=== PATIENT | female | born 1960 | race African-American/Black ===

== ENCOUNTER 2017-12-07 13:25 | Inpatient (IN) | payer OTHER ==
[~2017-12-07] VITALS: Ht 165.1 cm; Wt 107.5 kg
[2017-12-07] MEDS ORDERED: ONDANSETRON HCL 4MG/2ML VIAL IV STA (13:32)
[2017-12-07 14:05] LABS: BASOPHILS % 0.8 % (0.0-2.0); EOSINOPHILS % 0.4 % (0.0-5.0); HEMATOCRIT. 42.4 % (36.0-48.0); HEMOGLOBIN. 14.1 g/dL (12.0-16.0); LYMPHOCYTES % 25.6 % (20.0-50.0); MEAN CORPUSCULAR HEMOGLOBIN 28.8 pg (28.0-32.0); MEAN CORPUSCULAR VOLUME 86.8 fL (81.0-99.0); MEAN PLATELET VOLUME 8.1 fl (7.4-10.4); MONOCYTES % 10.3 % (2.0-8.0); NEUTROPHILS % 62.9 % (40.0-76.0); PLATELET 341 x1000/uL (130-400); RED BLOOD CELL COUNT 4.89 mill/uL (4.2-5.4); RED CELL DISTRIBUTION WIDTH 14.3 % (11.6-14.6)
[2017-12-07 14:15] LABS: INR 1.1; PARTIAL THROMBOPLASTIN TIME 34.2 sec (23.4-31.0); PROTHROMBIN TIME 11.7 sec (9.4-11.6)
[2017-12-07] MEDS ORDERED: SODIUM CHLORIDE 0.9% 1,000 ML IV ONE (14:22)
[2017-12-07] MEDS ORDERED: ACETAMINOPHEN 325MG TABLET PO STA (14:22)
[2017-12-07 14:23] LABS: CHLORIDE 100 mEq/L (98-107); TROPONIN I < 0.02 ng/mL (0.00-0.04)
[2017-12-07] MEDS ORDERED: LEVOFLOXACIN 750MG PREMIX 150 ML IV ONE (14:30)
[2017-12-07] MEDS ORDERED: METHYLPREDNISOLONE SOD SUCC 125 MG/2 ML VIAL IV ONE (14:30)
[2017-12-07] MEDS ORDERED: IPRATROPIUM/ALBUTEROL 0.5-3(2.5)MG/3ML NEB HHN ONE (14:30)
[2017-12-07] MEDS ORDERED: KETOROLAC 30MG/ML VIAL IM ONE (16:00)
[2017-12-07] MEDS ORDERED: OSELTAMIVIR 75MG CAPSULE PO ONE (16:00)
[2017-12-07] MEDS ORDERED: ONDANSETRON HCL 4MG/2ML VIAL IV PRN (16:15)
[2017-12-07] MEDS: ACETAMINOPHEN 650MG/20.3ML UDC GT PRN ×2 (16:17→16:19)
[2017-12-07] MEDS ORDERED: HYDROMORPHONE HCL/PF 2MG/ML CPJ IV PRN (19:45)
[2017-12-07] MEDS: HYDROMORPHONE HCL/PF 2MG/ML CPJ IV PRN (20:03)
[2017-12-07 22:30] VITALS: BP 157/81
[2017-12-07 22:45] VITALS: BP 157/81
[2017-12-07] MEDS: LORAZEPAM 2MG/ML CPJ IV PRN (23:52)
[2017-12-07] MEDS: SODIUM CHLORIDE 0.9% 1,000 ML IV SCH (23:55)
[2017-12-08] VITALS (8 sets, daily range): BP systolic 131–184; BP diastolic 60–99
[2017-12-08] MEDS ORDERED: POTASSIUM CHLORIDE INJ 40 MEQ in DEXT 5% WATER 500 ML IV NR ×2
[2017-12-08] MEDS: HYDROMORPHONE HCL/PF 2MG/ML CPJ IV PRN ×3 (01:46→15:09)
[2017-12-08] MEDS: IPRATROPIUM/ALBUTEROL 0.5-3(2.5)MG/3ML NEB HHN SCH ×5 (04:57→20:52)
[2017-12-08] MEDS: ENOXAPARIN 40MG/0.4ML SYR SUBCUT SCH ×2 (08:14→21:05)
[2017-12-08] MEDS: SODIUM CHLORIDE 0.9% 1,000 ML IV SCH ×2 (08:14→18:07)
[2017-12-08 08:54] LABS: BASOPHILS % 0.7 % (0.0-2.0); HEMOGLOBIN. 13.9 g/dL (12.0-16.0); LYMPHOCYTES % 29.3 % (20.0-50.0); MEAN CORPUSCULAR HEMOGLOBIN 28.8 pg (28.0-32.0); MEAN CORPUSCULAR VOLUME 87.2 fL (81.0-99.0); MEAN PLATELET VOLUME 8.3 fl (7.4-10.4); MONOCYTES % 10.9 % (2.0-8.0); NEUTROPHILS % 59.1 % (40.0-76.0); PLATELET 323 x1000/uL (130-400); RED BLOOD CELL COUNT 4.82 mill/uL (4.2-5.4); RED CELL DISTRIBUTION WIDTH 14.4 % (11.6-14.6)
[2017-12-08 09:12] LABS: CLARITY URINE CLOUDY (CLEAR); COLOR URINE YELLOW (YELLOW); KETONES URINE NEGATIVE (NEGATIVE); LEUKOCYTE ESTERASE URINE TRACE (NEGATIVE); NITRITE URINE NEGATIVE (NEGATIVE); OCCULT BLOOD URINE 3+ (NEGATIVE); PH URINE 6.5 (4.5-8.0); PROTEIN URINE 2+ (NEGATIVE)
[2017-12-08 09:34] LABS: CHLORIDE 103 mEq/L (98-107)
[2017-12-08 10:00] LABS: *AMPHETAMINES SCREEN URINE NEGATIVE (NEGATIVE); *BARBITURATES SCREEN URINE NEGATIVE (NEGATIVE); *BENZODIAZEPINES SCREEN URINE NEGATIVE (NEGATIVE); *COCAINE SCREEN URINE NEGATIVE (NEGATIVE); CANNABINOID URINE SCREEN PRESUMTIVE POSITIVE (NEGATIVE); METHADONE URINE SCREEN NEGATIVE (NEGATIVE); OPIATES URINE SCREEN PRESUMTIVE POSITIVE (NEGATIVE); PHENCYCLIDINE URINE SCREEN NEGATIVE (NEGATIVE)
[2017-12-08] MEDS: LORAZEPAM 2MG/ML CPJ IV PRN ×2 (11:07→19:05)
[2017-12-08] MEDS: METHYLPREDNISOLONE SOD SUCC 125 MG/2 ML VIAL IV SCH ×2 (12:04→21:05)
[2017-12-08] MEDS ORDERED: LEVOFLOXACIN 500MG PREMIX 100 ML IV SCH (15:00)
[2017-12-08] MEDS: CLONIDINE 0.1MG TABLET PO PRN (15:08)
[2017-12-08] MEDS: BUDESONIDE 0.5MG/2ML NEB HHN SCH (15:52)
[2017-12-08] MEDS: MONTELUKAST SODIUM 10MG TABLET PO SCH (16:14)
[2017-12-08 17:11] LABS: CLARITY URINE CLEAR (CLEAR); COLOR URINE YELLOW (YELLOW); KETONES URINE NEGATIVE (NEGATIVE); LEUKOCYTE ESTERASE URINE NEGATIVE (NEGATIVE); NITRITE URINE NEGATIVE (NEGATIVE); OCCULT BLOOD URINE 3+ (NEGATIVE); PH URINE 5.5 (4.5-8.0); PROTEIN URINE TRACE (NEGATIVE); SPECIFIC GRAVITY URINE 1.027 (1.005-1.030)
[2017-12-08] MEDS: ACETAMINOPHEN 650MG/20.3ML UDC GT PRN (21:04)
[2017-12-08] MEDS: GUAIFENESIN 600MG ER TABLET PO SCH (21:05)
[2017-12-08] MEDS: FAMOTIDINE 20MG TABLET PO SCH (21:06)
[2017-12-09] VITALS: BP 161/94
[2017-12-09 04:00] VITALS: BP 160/87
[2017-12-09] MEDS: SODIUM CHLORIDE 0.9% 1,000 ML IV SCH (04:32)
[2017-12-09] MEDS: METHYLPREDNISOLONE SOD SUCC 125 MG/2 ML VIAL IV SCH (04:32)
[2017-12-09] MEDS: LORAZEPAM 2MG/ML CPJ IV PRN ×2 (04:37)
[2017-12-09] MEDS: IPRATROPIUM/ALBUTEROL 0.5-3(2.5)MG/3ML NEB HHN SCH ×4 (04:44→15:36)
[2017-12-09] MEDS: BUDESONIDE 0.5MG/2ML NEB HHN SCH ×2 (04:45→07:23)
[2017-12-09] MEDS: ACETAMINOPHEN 650MG/20.3ML UDC GT PRN (04:48)
[2017-12-09 05:51] LABS: BASOPHILS % 0.1 % (0.0-2.0); HEMATOCRIT. 42.7 % (36.0-48.0); HEMOGLOBIN. 14.3 g/dL (12.0-16.0); LYMPHOCYTES % 19.2 % (20.0-50.0); MEAN CORPUSCULAR HEMOGLOBIN 29.2 pg (28.0-32.0); MEAN PLATELET VOLUME 8.6 fl (7.4-10.4); MONOCYTES % 4.6 % (2.0-8.0); NEUTROPHILS % 76.1 % (40.0-76.0); PLATELET 372 x1000/uL (130-400); RED CELL DISTRIBUTION WIDTH 14.5 % (11.6-14.6)
[2017-12-09 06:30] LABS: CHLORIDE 102 mEq/L (98-107)
[2017-12-09 08:00] VITALS: BP 150/92
[2017-12-09] MEDS: CLONIDINE 0.1MG TABLET PO PRN ×2 (09:23→19:08)
[2017-12-09] MEDS: FAMOTIDINE 20MG TABLET PO SCH (09:23)
[2017-12-09] MEDS: ENOXAPARIN 40MG/0.4ML SYR SUBCUT SCH (09:23)
[2017-12-09] MEDS: GUAIFENESIN 600MG ER TABLET PO SCH (09:23)
[2017-12-09] MEDS: HYDROMORPHONE HCL/PF 2MG/ML CPJ IV PRN ×2 (09:25→13:40)
[2017-12-09] MEDS ORDERED: LEVOFLOXACIN 500MG PREMIX 100 ML IV SCH (11:00)
[2017-12-09] MEDS ORDERED: LOSARTAN POTASSIUM 50 MG TABLET PO SCH (11:15)
[2017-12-09 12:00] VITALS: BP 164/88
[2017-12-09] MEDS ORDERED: METHYLPREDNISOLONE SOD SUCC 40 MG/ML VIAL IV SCH (14:00)
[2017-12-09 16:00] VITALS: BP 150/94
[2017-12-09] MEDS: MONTELUKAST SODIUM 10MG TABLET PO SCH (16:49)
[2017-12-09 18:58] VITALS: BP 150/94
[2017-12-09] MEDS ORDERED: BUDESONIDE 0.5MG/2ML NEB HHN SCH (20:00)
== END 2017-12-09 19:19 | disposition short-term general hospital (02) | DRG 189 ==
LOC: ER 14:07 → EDBEDREQ 14:29 → 5WST 16:00 → EDBEDREQ 16:02 → EDBEDREQSVC 16:02 → ENRESERV 20:14
PROVIDERS: ADMIT Internal Medicine Nephrology; ATTEND Internal Medicine Nephrology
DX: J96.00 Acute respiratory failure, unspecified whether with hypoxia or hypercapnia (principal); J45.901 Unspecified asthma with (acute) exacerbation; E86.0 Dehydration; N39.0 Urinary tract infection, site not specified; J06.9 Acute upper respiratory infection, unspecified; K21.9 Gastro-esophageal reflux disease without esophagitis; I10 Essential (primary) hypertension; E87.6 Hypokalemia; Z60.2 Problems related to living alone; F41.9 Anxiety disorder, unspecified; F11.90 Opioid use, unspecified, uncomplicated; F12.90 Cannabis use, unspecified, uncomplicated; E66.9 Obesity, unspecified; Z83.3 Family history of diabetes mellitus; Z83.2 Family history of diseases of the blood and blood-forming organs and certain disorders involving the immune mechanism
CPT/HCPCS: 36415; 71045; 80048; 80053; 80305; 81001; 83605; 83690; 83880; 84484; 85025; 85610; 85730; 87040; 87070; 87086; 87804; 93005; 94640; 96365; 96366; 96372; 96375; 99285; J1170; J1650; J1885; J1956; J2060; J2405; J2920; J2930; J3480; J7030; J7060; J7620; J7626

== ENCOUNTER 2025-08-25 09:45 | Inpatient (IN) | payer BC, MEDICAID ==
[~2025-08-25] VITALS: Ht 165.1 cm; Wt 98.4 kg
[2025-08-25] MEDS: FAMOTIDINE 20MG/2ML VIAL IV ONE (10:23)
[2025-08-25] MEDS: KETOROLAC 15MG/ML VIAL IV ONE (10:23)
[2025-08-25] MEDS: SODIUM CHLORIDE 0.9% 1,000 ML IV ONE (10:24)
[2025-08-25] MEDS: ONDANSETRON HCL 4MG/2ML INJ IV ONE (10:24)
[2025-08-25 10:35] LABS: BASOPHILS % 1.6 % (0.0-2.0); EOSINOPHILS % 0.6 % (0.0-5.0); HEMATOCRIT. 40.6 % (36.0-48.0); HEMOGLOBIN. 13.3 g/dL (12.0-16.0); LYMPHOCYTES % 25.8 % (20.0-50.0); MEAN PLATELET VOLUME 8.2 fl (7.4-10.4); MONOCYTES % 5.0 % (2.0-8.0); NEUTROPHILS % 67.0 % (40.0-76.0); PLATELET 358 x1000/uL (130-400); RED BLOOD CELL COUNT 4.55 mill/uL (4.2-5.4); RED CELL DISTRIBUTION WIDTH 15.0 % (11.6-14.6)
[2025-08-25 10:54] LABS: CREATININE 0.9 mg/dL (0.6-1.0); UREA NITROGEN BLOOD 10 mg/dL (9-23)
[2025-08-25 10:55] LABS: ETHANOL BLOOD < 10 mg/dL (<10)
[2025-08-25 10:56] LABS: ASPARTATE AMINOTRANSFERASE 26 IU/L (<34); BILIRUBIN DIRECT 0.2 mg/dL (<=3.0)
[2025-08-25 10:57] LABS: BILIRUBIN TOTAL 0.8 mg/dL (0.1-1.0); PROTEIN TOTAL 7.7 g/dL (6.0-8.3)
[2025-08-25] MEDS: HALOPERIDOL LACTATE 5MG/ML VIAL IM ONE (11:06)
[2025-08-25 11:15] LABS: TROPONIN I HIGH SENSITIVITY 1885 ng/L (3.0-34)
[2025-08-25] MEDS: MORPHINE SULFATE 4 MG/ML INJ (FOR IV/IM USE) IV ONE (11:57)
[2025-08-25] MEDS: LABETALOL 5MG/ML 4ML INJ IV ONE (11:57)
[2025-08-25 12:29] LABS: CLARITY URINE CLEAR (CLEAR); COLOR URINE YELLOW (YELLOW); GLUCOSE URINE NEGATIVE (NEGATIVE); KETONES URINE TRACE (NEGATIVE); LEUKOCYTE ESTERASE URINE NEGATIVE (NEGATIVE); NITRITE URINE NEGATIVE (NEGATIVE); OCCULT BLOOD URINE 2+ (NEGATIVE); PH URINE 6.5 (4.5-8.0); PROTEIN URINE NEGATIVE (NEGATIVE); SPECIFIC GRAVITY URINE 1.014 (1.005-1.030); UROBILINOGEN URINE 0.2 E.U./dL (0.2-1.0)
[2025-08-25] MEDS ORDERED: HEPARIN 5000 UNITS/ML VIAL IV SCH (12:45)
[2025-08-25] MEDS ORDERED: HEPARIN 5000 UNITS/ML VIAL IV PRN ×5 (12:45→19:00)
[2025-08-25 13:25] LABS: *AMPHETAMINES SCREEN URINE NEGATIVE (NEGATIVE); *BARBITURATES SCREEN URINE NEGATIVE (NEGATIVE); *BENZODIAZEPINES SCREEN URINE NEGATIVE (NEGATIVE)
[2025-08-25 13:26] LABS: *COCAINE SCREEN URINE NEGATIVE (NEGATIVE); CANNABINOID URINE SCREEN PRESUMPTIVE POSITIVE (NEGATIVE); ECSTASY MDMA SCREEN URINE NEGATIVE (NEGATIVE); METHADONE URINE SCREEN NEGATIVE (NEGATIVE); OPIATES URINE SCREEN NEGATIVE (NEGATIVE); PHENCYCLIDINE URINE SCREEN NEGATIVE (NEGATIVE)
[2025-08-25 13:27] LABS: SQUAMOUS EPITHELIAL CELL URINE FEW /lpf (RARE/1+)
[2025-08-25 13:28] LABS: BACTERIA URINE TRACE
[2025-08-25 13:29] LABS: WBC URINE NONE SEEN /hpf (0-2)
[2025-08-25 13:38] LABS: INR 1.1
[2025-08-25] MEDS: HEPARIN 5000 UNITS/ML VIAL IV SCH (13:48)
[2025-08-25] MEDS: HEPARIN 25,000 UNITS PREMIX 250 ML IV PRN (13:51)
[2025-08-25 15:40] LABS: TROPONIN I HIGH SENSITIVITY 3954 ng/L (3.0-34)
[2025-08-25] MEDS ORDERED: ACETAMINOPHEN 325MG TABLET PO PRN (16:00)
[2025-08-25] MEDS ORDERED: MAGNESIUM/ALUMINUM HYDROXIDE/SIMETHICONE 30ML UDC PO PRN (16:00)
[2025-08-25] MEDS ORDERED: ONDANSETRON HCL 4MG/2ML INJ IV PRN (16:00)
[2025-08-25] MEDS ORDERED: NALOXONE HCL 0.4MG/ML VIAL IV PRN (16:15)
[2025-08-25] MEDS: CLONIDINE 0.1MG TABLET PO PRN (16:41)
[2025-08-25] MEDS ORDERED: HEPARIN 25,000 UNITS PREMIX 250 ML IV PRN (16:45)
[2025-08-25] MEDS ORDERED: HYDRALAZINE 20MG/ML VIAL IV PRN (16:45)
[2025-08-25] MEDS: MORPHINE SULFATE 4 MG/ML INJ (FOR IV/IM USE) IV PRN (16:45)
[2025-08-25 16:47] VITALS: BP 174/84; PULSE 60; RESP 18; TEMP 37.1408
[2025-08-25 17:00] VITALS: BP 174/84; PULSE 60; RESP 16; TEMP 37.1; O2SAT 98
[2025-08-25] MEDS: AMLODIPINE 10MG TABLET PO SCH (18:37)
[2025-08-25] MEDS: DEXT 5%/0.45% NACL 1000ML 1,000 ML IV SCH (18:37)
[2025-08-25 20:00] VITALS: BP 137/69; PULSE 59; RESP 19; TEMP 36.4; O2SAT 96
[2025-08-25] MEDS: ATORVASTATIN CALCIUM 40MG TABLET PO SCH (20:08)
[2025-08-25] MEDS: ZOLPIDEM TARTRATE 5MG TABLET PO PRN (22:49)
[2025-08-26] VITALS (7 sets, daily range): BP systolic 112–150; BP diastolic 53–76; PULSE 60–72; RESP 13–22; TEMP 36.4–36.9; O2SAT 94–100
[2025-08-26 00:37] LABS: TROPONIN I HIGH SENSITIVITY 10112 ng/L (3.0-34)
[2025-08-26 07:31] LABS: BASOPHILS % 0.5 % (0.0-2.0); EOSINOPHILS % 0.9 % (0.0-5.0); HEMATOCRIT. 37.8 % (36.0-48.0); HEMOGLOBIN. 12.5 g/dL (12.0-16.0); LYMPHOCYTES % 32.0 % (20.0-50.0); MEAN PLATELET VOLUME 8.9 fl (7.4-10.4); MONOCYTES % 7.9 % (2.0-8.0); NEUTROPHILS % 58.7 % (40.0-76.0); PLATELET 312 x1000/uL (130-400); RED BLOOD CELL COUNT 4.28 mill/uL (4.2-5.4); RED CELL DISTRIBUTION WIDTH 15.1 % (11.6-14.6)
[2025-08-26] MEDS ORDERED: IODIXANOL 320MG/ML 100 ML BOTTLE IV ONE ×2 (07:45→09:33)
[2025-08-26] MEDS ORDERED: LIDOCAINE HCL 1% 20ML VIAL ONE (07:45)
[2025-08-26] MEDS ORDERED: VERAPAMIL HCL 2.5 MG/1 ML 2ML VIAL IV ONE (07:45)
[2025-08-26] MEDS ORDERED: HEPARIN 1000 UNITS/ML 10ML ONE (07:45)
[2025-08-26 07:51] LABS: CREATININE 0.8 mg/dL (0.6-1.0); TRIGLYCERIDE 87 mg/dL (0-150); UREA NITROGEN BLOOD 9 mg/dL (9-23)
[2025-08-26 07:52] LABS: LDL CHOLESTEROL 133 mg/dL (5-100)
[2025-08-26 08:13] LABS: TROPONIN I HIGH SENSITIVITY 14231 ng/L (3.0-34)
[2025-08-26] MEDS ORDERED: FENTANYL CITRATE/PF 50MCG/ML 2ML VIAL ONE (08:47)
[2025-08-26] MEDS ORDERED: DIPHENHYDRAMINE 50MG/ML VIAL ONE (08:47)
[2025-08-26] MEDS ORDERED: MIDAZOLAM HCL 2 MG/2 ML VIAL ONE ×2 (08:47→10:03)
[2025-08-26] MEDS ORDERED: EPINEPHRINE 0.1MG/ML (1:10,000) 10ML SYR ONE (09:24)
[2025-08-26] MEDS ORDERED: ATROPINE SULFATE 1MG/10ML SYR ONE (09:24)
[2025-08-26] MEDS ORDERED: ASPIRIN 325MG EC TABLET PO ONE (09:38)
[2025-08-26] MEDS ORDERED: CLOPIDOGREL 75MG TABLET ONE (09:39)
[2025-08-26] MEDS ORDERED: HYDRALAZINE 20MG/ML VIAL ONE ×2 (10:19→10:34)
[2025-08-26] MEDS ORDERED: ATROPINE SULFATE 1MG/10ML SYR IV PRN (10:45)
[2025-08-26] MEDS ORDERED: ACETAMINOPHEN 325MG TABLET PO PRN (10:45)
[2025-08-26] MEDS: ASPIRIN 81MG TABLET PO SCH (11:32)
[2025-08-26] MEDS: ALPRAZOLAM 0.25 MG TABLET PO SCH (12:20)
[2025-08-26] MEDS: IPRATROPIUM/ALBUTEROL 0.5-3(2.5)MG/3ML NEB HHN PRN (12:44)
[2025-08-26] MEDS: PANTOPRAZOLE SODIUM 40 MG/VIAL IV SCH (13:10)
[2025-08-26] MEDS: HYDROCODONE/ACETAMINOPHEN 5/325MG TABLET PO PRN (20:12)
[2025-08-27] VITALS (7 sets, daily range): BP systolic 126–157; BP diastolic 55–95; PULSE 62–77; RESP 16–22; TEMP 36.4–36.9; O2SAT 92–100
[2025-08-27 08:07] LABS: BASOPHILS % 0.5 % (0.0-2.0); EOSINOPHILS % 1.1 % (0.0-5.0); HEMATOCRIT. 40.8 % (36.0-48.0); HEMOGLOBIN. 13.3 g/dL (12.0-16.0); LYMPHOCYTES % 35.0 % (20.0-50.0); MEAN PLATELET VOLUME 8.2 fl (7.4-10.4); MONOCYTES % 8.8 % (2.0-8.0); NEUTROPHILS % 54.6 % (40.0-76.0); PLATELET 328 x1000/uL (130-400); RED BLOOD CELL COUNT 4.58 mill/uL (4.2-5.4); RED CELL DISTRIBUTION WIDTH 14.9 % (11.6-14.6)
[2025-08-27 08:42] LABS: CREATININE 0.9 mg/dL (0.6-1.0); UREA NITROGEN BLOOD 9 mg/dL (9-23)
[2025-08-27] MEDS: CLOPIDOGREL 75MG TABLET PO SCH (08:46)
[2025-08-27] MEDS: POTASSIUM CHLORIDE 20MEQ TABLET SR PO NR (13:17)
[2025-08-28] VITALS (10 sets, daily range): BP systolic 108–152; BP diastolic 59–103; PULSE 65–87; RESP 14–23; TEMP 36.7–37.4; O2SAT 96–100
[2025-08-28 07:20] LABS: CREATININE 0.8 mg/dL (0.6-1.0); UREA NITROGEN BLOOD 10 mg/dL (9-23)
[2025-08-28 07:25] LABS: BASOPHILS % 0.5 % (0.0-2.0); EOSINOPHILS % 1.9 % (0.0-5.0); HEMATOCRIT. 38.3 % (36.0-48.0); HEMOGLOBIN. 12.7 g/dL (12.0-16.0); LYMPHOCYTES % 33.7 % (20.0-50.0); MEAN PLATELET VOLUME 8.6 fl (7.4-10.4); MONOCYTES % 10.0 % (2.0-8.0); NEUTROPHILS % 53.9 % (40.0-76.0); PLATELET 288 x1000/uL (130-400); RED BLOOD CELL COUNT 4.32 mill/uL (4.2-5.4); RED CELL DISTRIBUTION WIDTH 14.9 % (11.6-14.6)
[2025-08-28] MEDS ORDERED: IODIXANOL 320 MG/ML 150ML BOTTLE IV ONE (08:12)
[2025-08-28] MEDS ORDERED: EPINEPHRINE 0.1MG/ML (1:10,000) 10ML SYR ONE (08:12)
[2025-08-28] MEDS ORDERED: HEPARIN 1000 UNITS/ML 10ML ONE ×2 (08:13→09:20)
[2025-08-28] MEDS ORDERED: DIPHENHYDRAMINE 50MG/ML VIAL ONE (08:13)
[2025-08-28] MEDS ORDERED: VERAPAMIL HCL 2.5 MG/1 ML 2ML VIAL IV ONE (08:13)
[2025-08-28] MEDS ORDERED: LIDOCAINE HCL 1% 20ML VIAL ONE (08:13)
[2025-08-28] MEDS ORDERED: ATROPINE SULFATE 1MG/10ML SYR ONE (08:13)
[2025-08-28] MEDS ORDERED: MIDAZOLAM HCL 2 MG/2 ML VIAL ONE ×3 (08:51→10:01)
[2025-08-28] MEDS ORDERED: FENTANYL CITRATE/PF 50MCG/ML 2ML VIAL ONE ×2 (08:51→09:49)
[2025-08-28] MEDS ORDERED: HYDRALAZINE 20MG/ML VIAL ONE (09:30)
[2025-08-28] MEDS ORDERED: CLOPIDOGREL 75MG TABLET ONE (10:05)
[2025-08-28] MEDS ORDERED: ONDANSETRON HCL 4MG/2ML INJ ONE (10:05)
[2025-08-28] MEDS ORDERED: ACETAMINOPHEN 325MG TABLET PO PRN (10:30)
[2025-08-28] MEDS ORDERED: ATROPINE SULFATE 1MG/10ML SYR IV PRN (10:30)
[2025-08-28] MEDS: SODIUM CHLORIDE 0.45% 250 ML IV ONE (10:40)
[2025-08-28] MEDS ORDERED: AMLO10TA80 PO (10:59)
[2025-08-28] MEDS ORDERED: LIP40 PO (10:59)
[2025-08-28] MEDS ORDERED: CLOP-31 PO (10:59)
[2025-08-28] MEDS ORDERED: ASPI-1160 PO (10:59)
== END 2025-08-28 19:16 | disposition home or self-care (01) | DRG 324 ==
LOC: ER 09:45 → 6WST 12:35 → EDBEDREQ 12:38 → EDBEDREQTM 12:38 → CANRESERV 15:01 → ENRESERV 15:01 → 3WST 08-26 14:40
PROVIDERS: ADMIT Internal Medicine; ATTEND Internal Medicine
PROC: 027135Z Dilation of Coronary Artery, Two Arteries with Two Drug-eluting Intraluminal Devices, Percutaneous Approach (ICD-10-PCS; principal; 2025-08-26)
PROC: 02F03ZZ Fragmentation in Coronary Artery, One Artery, Percutaneous Approach (ICD-10-PCS; 2025-08-26)
PROC: 4A023N7 Measurement of Cardiac Sampling and Pressure, Left Heart, Percutaneous Approach (ICD-10-PCS; 2025-08-26)
PROC: B211YZZ Fluoroscopy of Multiple Coronary Arteries using Other Contrast (ICD-10-PCS; 2025-08-26)
PROC: B240ZZ3 Ultrasonography of Single Coronary Artery, Intravascular (ICD-10-PCS; 2025-08-26)
PROC: 027035Z Dilation of Coronary Artery, One Artery with Two Drug-eluting Intraluminal Devices, Percutaneous Approach (ICD-10-PCS; 2025-08-28)
PROC: 02F03ZZ Fragmentation in Coronary Artery, One Artery, Percutaneous Approach (ICD-10-PCS; 2025-08-28)
PROC: 4A023N7 Measurement of Cardiac Sampling and Pressure, Left Heart, Percutaneous Approach (ICD-10-PCS; 2025-08-28)
PROC: B211YZZ Fluoroscopy of Multiple Coronary Arteries using Other Contrast (ICD-10-PCS; 2025-08-28)
PROC: B240ZZ3 Ultrasonography of Single Coronary Artery, Intravascular (ICD-10-PCS; 2025-08-28)
DX: I21.4 Non-ST elevation (NSTEMI) myocardial infarction (principal); I16.1 Hypertensive emergency; K21.9 Gastro-esophageal reflux disease without esophagitis; I25.10 Atherosclerotic heart disease of native coronary artery without angina pectoris; K29.70 Gastritis, unspecified, without bleeding; J45.909 Unspecified asthma, uncomplicated; E66.9 Obesity, unspecified; Z68.36 Body mass index [BMI] 36.0-36.9, adult; E87.6 Hypokalemia; F41.9 Anxiety disorder, unspecified; I10 Essential (primary) hypertension; Z79.02 Long term (current) use of antithrombotics/antiplatelets; Z79.82 Long term (current) use of aspirin; Z79.899 Other long term (current) drug therapy
CPT/HCPCS: 36415; 71045; 71275; 74174; 74176; 80048; 80061; 80076; 80305; 80320; 81003; 83036; 83735; 84443; 84484; 85025; 85347; 92928; 92978; 93005; 93306; 93454; 93458; 93970; 94070; 94640; 94664; 96372; 96374; 96375; 98960; 99291; A4606; C1725; C1753; C1769; C1874; C1887; C1893; J0360; J0461; J1200; J1308; J1630; J1644; J1885; J2003; J2250; J2270; J2405; J2470; J3010; J3490; J7030; Q9967; C1761; G0480

== ENCOUNTER 2025-09-03 21:30 | Emergency (ER) | payer BC, MEDICAID ==
[~2025-09-03] VITALS: Ht 165.1 cm; Wt 89.2 kg
[~2025-09-03 21:30] MED LIST: AMLO10TA80 PO; ASPI-1160 PO; CLOP-31 PO; LIP40 PO
[2025-09-03 21:37] VITALS: O2SAT 99
[2025-09-04 03:09] VITALS: BP 146/68; PULSE 65; RESP 18; TEMP 36.9; O2SAT 100
== END 2025-09-04 03:15 | disposition home or self-care (01) ==
LOC: ER 21:30
DX: S40.021A Contusion of right upper arm, initial encounter (principal); I80.9 Phlebitis and thrombophlebitis of unspecified site; I10 Essential (primary) hypertension; J45.909 Unspecified asthma, uncomplicated; Z79.02 Long term (current) use of antithrombotics/antiplatelets; Z79.82 Long term (current) use of aspirin; Z88.6 Allergy status to analgesic agent; Z79.899 Other long term (current) drug therapy; X58.XXXA Exposure to other specified factors, initial encounter; Y93.89 Activity, other specified; Y92.89 Other specified places as the place of occurrence of the external cause; Y99.8 Other external cause status
CPT/HCPCS: 93971; 99284